=== PATIENT | male | born 1995 ===

== ENCOUNTER 2017-12-12 10:11 | Emergency (ER) | payer SELFPAY ==
--- NOTE | 2017-12-12 11:07 | UC ---
Complaint Male HPI - HPI Summary HPI Summary: gets spasms of shooting pain from testicles in to abdomen---is not having them now- episodes are very fleeting---nothing seems to make it better or worse---- verbalizes concerns for testicular cancer---and a few days a go he was in and was bitten by a mosquito and has concerns for MAlaria--- - History of Current Complaint Chief Complaint: UCBackPain Stated Complaint: BACK PAIN Time Seen by Provider: 12/12/17 10:54 Hx Obtained From: Patient Onset/Duration: Resolved Timing: Lasting Seconds Severity Currently: None Location: Testicle Character: Sharp Aggravating Factor(s): Nothing Alleviating Factor(s): Nothing - Allergies/Home Medications Allergies/Adverse Reactions: Allergies Allergy/AdvReac Type Severity Reaction Status Date / Time peanut Allergy Anaphylatic Verified 12/12/17 10:57 Shock Tree Nuts Allergy Anaphylatic Verified 12/12/17 10:57 Shock Home Medications: Home Medications EPINEPHrine [Epipen] 0.3 mg IJ 12/12/17 [History] PMH/Surg Hx/FS Hx/Imm Hx Previously Healthy: Yes - Surgical History Surgical History: None - Family History Known Family History: Positive: None - Social History Occupation: Student Lives: With Family Alcohol Use: Weekly Substance Use Type: None Smoking Status (MU): Smoker, Current Status Unknown Type: Smokeless Tobacco Review of Systems Constitutional: Fatigue - after being bit by bug (concerned for malaria) Skin: Negative Eyes: Negative ENT: Negative Respiratory: Negative Cardiovascular: Negative Gastrointestinal: Negative Genitourinary: Negative, Other - fleeting pain from testile to abdomen ( concerned about cancer) Motor: Negative Neurovascular: Negative Musculoskeletal: Negative Neurological: Negative Psychological: Negative Is Patient Immunocompromised?: No All Other Systems Reviewed And Are Negative: Yes Physical Exam Triage Information Reviewed: Yes Appearance: Well-Appearing, No Pain Distress, Well-Nourished Vital Signs: Initial Vital Signs Temp 99.0 F 12/12/17 10:48 Pulse 86 12/12/17 10:48 Resp 18 12/12/17 10:48 BP 131/66 12/12/17 10:48 Pulse Ox 100 12/12/17 10:48 Vital Signs Reviewed: Yes Eye Exam: Normal Eyes: Positive: Conjunctiva Clear ENT Exam: Normal ENT: Positive: Normal ENT inspection, Hearing grossly normal, Pharynx normal, TMs normal, Uvula midline. Negative: Nasal congestion, Nasal drainage, Trismus , Muffled voice, Hoarse voice, Sinus tenderness Dental Exam: Normal Neck exam: Normal Neck: Positive: Supple, Nontender, No Lymphadenopathy Respiratory Exam: Normal Respiratory: Positive: Chest non-tender, Lungs clear, Normal breath sounds, No respiratory distress, No accessory muscle use Cardiovascular Exam: Normal Cardiovascular: Positive: RRR, No Murmur, Pulses Normal, Brisk Capillary Refill Abdominal Exam: Normal Abdomen Description: Positive: Nontender, No Organomegaly, Soft. Negative: CVA Tenderness (R), CVA Tenderness (L), Distended, Guarding, Hernia @, McBurney's Point Tenderness, Peritoneal Signs, Pulsatile Mass Bowel Sounds: Positive: Present Male Genital Exam: Positive: Normal Genitalia. Negative: No Hernia, Bleeding, Epididymal Tenderness, Erythema, Hernia Mass, Inguinal Tenderness, Lesions, Scrotum Tenderness (R), Scrotum Tenderness (L), Testicular Tenderness (R), Testicular Tenderness (L), Urethral Discharge Musculoskeletal Exam: Normal Musculoskeletal: Positive: Strength Intact, ROM Intact Neurological Exam: Normal Neurological: Positive: Alert, Muscle Tone Normal Psychological Exam: Normal Skin Exam: Normal Complaint Male Course/Dx - Course Course Of Treatment: can follow with ed or pcp should symptoms worsen or fail to improve. will obtain labs for patient and call for any abnormal results - Differential Dx/Diagnosis Provider Diagnoses: abdomen /testicular pain resolved-insect bite Discharge - Sign-Out/Discharge Documenting (check all that apply): Patient Departure - Discharge Plan Condition: Stable Disposition: HOME Patient Education Materials: Malaria (ED), Testicle Pain (ED) Referrals: [facility] [Outside] - If Needed Additional Instructions: We will call you if any reviewed lab tests come back abnormal. For continued pains and symptoms of your testicular discomfort you may consider a ultrasound. While traveling you may need to go to the emergency department or return to the urgent care Thursday through Thursday morning for such testing - Billing Disposition and Condition Condition: STABLE Disposition: Home
[2017-12-12 14:27] LABS: ABS Basophils 0 10^3/ul (0-0.2); ABS Eosinophils 0.1 10^3/ul (0-0.6); ABS Lymphocytes 1.3 10^3/ul (1.0-4.8); ABS Monocytes 0.5 10^3/ul (0-0.8); ABS Neutrophils 5.9 10^3/ul (1.5-7.7); ABS Nucleated RBC 0 10^3/ul; Eosinophil % 1.3 % (0-6); Hematocrit 44 % (42-52); Hemoglobin 15.4 g/dl (14.0-18.0); Lymphocyte % 16.3 % (25-47); Mean Corpuscular HGB Conc 35 g/dl (31-36); Mean Corpuscular Hemoglobin 31 pg (27-31); Mean Corpuscular Volume 88 fL (80-94); Mean Platelet Volume 9.1 um3 (7.4-10.4); Nucleated Red Blood Cells % 0; Platelet Count 227 10^3/ul (150-450); Red Blood Count 5.02 10^6/ul (4.00-5.40); Red Cell Distribution Width 13 % (10.5-15); White Blood Count 7.8 10^3/ul (3.5-10.8)
[2017-12-12 14:43] LABS: EGFR Non-African American 103.6 (>60)
[2017-12-12 17:00] LABS: RBC Parasite Smear No Parasites Seen (No Parasite)
== END 2017-12-12 12:15 | disposition home or self-care (01) ==
LOC: UCEAST 10:11
DX: N50.812 Left testicular pain (principal); N50.811 Right testicular pain; R53.83 Other fatigue; Z91.018 Allergy to other foods; Z91.010 Allergy to peanuts; F17.200 Nicotine dependence, unspecified, uncomplicated
CPT/HCPCS: 36415; 80053; 81003; 85025; 87015; 87207; 99201; G0463